=== PATIENT | female | born 1950 | race Caucasian/White ===

== ENCOUNTER → 2016-08-02 | Outpatient (CLI) | payer MEDICARE, OTHER ==
--- NOTE | 2016-08-02 16:00 | RAD ---
DATE: 08/02/16 EXAM: MAMMO LAUREANO DIAG RT, BREAST RIGHT ultrasound HISTORY: Follow-up nodules in the right breast COMPARISON: Diagnostic bilateral mammogram and right breast ultrasound from 01/08/16 This study was interpreted with the benefit of Computerized Aided Detection (CAD). TECHNIQUE: 2-D and 3-D mammogram of the right breast and targeted ultrasound of the right breast. FINDINGS: Diagnostic right mammogram: Breast Density: HETERO The breast parenchyma is heterogeneously dense, which could reduce sensitivity of mammography. Breast parenchyma level C.. Scattered benign-appearing calcifications are seen. Faint nodularity previously seen in the right medial breast appears less well-defined There is no architectural distortion. Ultrasound to follow Right breast ultrasound: Previously seen 3 echogenic ovoid hyperechoic nodule in the subcutaneous right breast are redemonstrated. There is a new similar 1.1 cm nodule at 3:00 position. IMPRESSION: Nodule seen in the medial right breast on prior mammogram is less prominent. Benign-appearing echogenic subcutaneous nodules in the right breast with one new similar nodule probably represents a lipoma. Six-month follow-up bilateral mammogram to place the patient on routine annual schedule BI-RADS CATEGORY: 3 PROBABLE BENIGN-SHORT TERM F/U bilateral mammogram RECOMMENDED FOLLOW-UP: 6M 6 MONTH FOLLOW-UP bilateral mammogram PQRS compliance statement: Patient information was entered into a reminder system with a target due date for the next mammogram. Mammography is a sensitive method for finding small breast cancers, but it does not detect them all and is not a substitute for careful clinical examination. A negative mammogram does not negate a clinically suspicious finding and should not result in delay in biopsying a clinically suspicious abnormality. "Our facility is accredited by the [employer] Mammography [employer]."
== END | disposition home or self-care (01) ==
LOC: MAMMO 13:57
PROVIDERS: ATTEND Specialist
DX: N63 Unspecified lump in breast (principal)
CPT/HCPCS: 76641; G0206; G0279; 77061; 77065

== ENCOUNTER → 2016-11-26 | Outpatient (CLI) | payer MEDICARE, OTHER ==
--- NOTE | 2016-11-26 13:00 | RAD ---
DATE: 11/26/2016 EXAM: MAMMO LAUREANO DIAG LT, BREAST LEFT HISTORY: Left breast mass felt 6 weeks ago by patient's physician. Intermittent left breast tenderness. COMPARISON: 01/01/2016 This study was interpreted with the benefit of Computerized Aided Detection (CAD). The breast parenchyma is heterogeneously dense, which could reduce sensitivity of mammography. Breast parenchyma level C. FINDINGS: Digital MLO and CC mammograms of the left breast were obtained. Additionally digital breast on the symphysis images of the left breast in the MLO and CC projections were performed. A radiopaque marker was placed in the upper-outer quadrant of the left breast in the area where the patient feels a palpable abnormality. Following completion of the mammogram a real-time ultrasound examination of the upper outer quadrant of the left breast was performed. Comparison study is dated 01/01/2016. The breast parenchyma is heterogeneously dense which can obscure a lesion on mammography. Benign-appearing calcifications are seen within the left breast. No spiculated mass is seen. No malignant appearing calcification or area of architectural distortion is noted. Since the previous mammogram there has been no significant interval change. On sonography dense breast parenchyma is seen throughout the upper quadrant of the left breast. At the 3:00 position two hyperechoic oval-shaped nodules are seen which measure 1.3 cm in size. Their ultrasound appearance is consistent with lipomas.. One of these may correspond to patient's palpable abnormality. No suspicious mass is seen. I would recharacterize the patient's mammograms BI-RADS Category 1 negative, no mammographic evidence of malignancy with a recommendation for routine yearly screening mammography for follow-up. IMPRESSION: 1. BI-RADS 1, negative, there is no mammographic evidence of malignancy. Routine yearly screening mammography is recommended for follow-up. 2. Two lipomas are seen within the left breast at the 3:00 position which measure 1.3 cm in size. One of these appears to correspond to the patient's palpable abnormality. No significant solid mass is seen. BI-RADS CATEGORY: 1 NEGATIVE RECOMMENDED FOLLOW-UP: 12M 12 MONTH FOLLOW-UP PQRS compliance statement: Patient information was entered into a reminder system with a target due date 12/31/2016 for the next mammogram. Mammography is a sensitive method for finding small breast cancers, but it does not detect them all and is not a substitute for careful clinical examination. A negative mammogram does not negate a clinically suspicious finding and should not result in delay in biopsying a clinically suspicious abnormality. "Our facility is accredited by the [employer]ammography [employer]."
== END | disposition home or self-care (01) ==
LOC: MAMMO 08:43
PROVIDERS: ATTEND Specialist
DX: D17.79 Benign lipomatous neoplasm of other sites (principal); N63 Unspecified lump in breast
CPT/HCPCS: 76641; G0206; G0279; 77061; 77065